=== PATIENT | female | born 1980 | race Caucasian/White ===

== ENCOUNTER → 2017-10-22 | Emergency (ER) | payer SELFPAY ==
[~2017-10-22] VITALS: Ht 167.6 cm; Wt 68.2 kg
[~2017-10-22] MED LIST: SYNTHROID 0.0.025 MG PO
[2017-10-22 21:48] VITALS: BP 147/102; PULSE 117; TEMP 97.1
[2017-10-22 22:09] LABS: BASO # 0.1 (0.0-0.2); BASO % 0.8 % (0.0-2.0); EOS # 0.1 (0.0-0.7); EOS % 0.6 % (0-4.0); GRAN # 3.8 (1.4-6.5); HEMATOCRIT 42.6 % (37.0-47.0); HEMOGLOBIN 14.7 g/dl (12.5-16.0); LYMPH # 4.4 (1.2-3.4); LYMPH % 50.1 % (20.0-51.0); MEAN CELL VOLUME 97 fl (80.0-100.0); MEAN CORPUSCULAR HEMOGLOBIN 33 pg (27.0-31.0); MEAN CORPUSCULAR HGB CONC 35 g/dl (33.0-37.0); MEAN PLATELET VOLUME 10.1 fl (7.4-10.4); MONO # 0.5 (0.1-0.6); MONO % 5.3 % (1.7-9.3); PLATELET COUNT 304 K/mm3 (130-400); REDCELL DISTRIBUTION WIDTH-CV 12.5 % (11.5-14.5)
[2017-10-22 22:21] LABS: ALANINE AMINOTRANSFERASE 26 U/L (9-52); ALBUMIN 4.3 gm/dL (3.5-5.0); ALKALINE PHOSPHATASE 63 U/L (50-136); ANION GAP 19 mmol/L (7-16); AST,SGOT 27 U/L (15-37); BILIRUBIN,TOTAL 0.2 mg/dL (0.0-1.0); BLOOD UREA NITROGEN 13 mg/dL (7-17); CALCIUM 8.6 mg/dL (8.4-10.2); CARBON DIOXIDE 23 mmol/L (22-30); CHLORIDE 104 mmol/L (98-107); CREATININE, serum 0.63 mg/dL (0.52-1.25); GLUCOSE 110 mg/dL (74-106); MAGNESIUM 1.5 mg/dL (1.6-2.3); PHOSPHOROUS 3.2 mg/dL (2.5-4.5); POTASSIUM 3.6 mmol/L (3.4-5.0); SODIUM 146 mmol/L (137-145); TOTAL PROTEIN 7.7 gm/dL (6.4-8.2)
[2017-10-22 22:22] LABS: ACETAMINOPHEN < 10 ug/mL (10-30); SALICYLATE < 1.0 mg/dL
[2017-10-22 22:28] LABS: ALCOHOL(ethanol),MEDICAL 435 mg/dL
[2017-10-22 23:52] LABS: COLLECTION METHOD CLEAN CATCH
[2017-10-22 23:58] LABS: PH 7 (5-8); URINE APPEARANCE Hazy; URINE BACTERIA Rare /hpf; URINE BILIRUBIN Negative (NEGATIVE); URINE BLOOD Negative (NEGATIVE); URINE COLOR Yellow; URINE GLUCOSE Negative (NEGATIVE); URINE KETONE Negative (NEGATIVE); URINE LEUKOCYTE ESTERASE Negative (NEGATIVE); URINE NITRATE Negative (NEGATIVE); URINE PROTEIN(semi-quant) Negative (NEGATIVE); URINE RBC 0-2 /hpf; URINE UROBILINOGEN Negative (NEGATIVE)
[2017-10-23 00:06] LABS: TRICYCLIC ANTIDEPRESS URINE NEGATIVE
== END ==
LOC: COL.ER 21:40
PROVIDERS: Emergency Medicine
DX: R41.82 Altered mental status, unspecified (principal); F10.129 Alcohol abuse with intoxication, unspecified; Z91.5 Personal history of self-harm; Y90.8 Blood alcohol level of 240 mg/100 ml or more
CPT/HCPCS: J7030

== ENCOUNTER 2017-11-08 19:50 | Emergency (ER) | payer SELFPAY ==
[~2017-11-08] VITALS: Ht 165.1 cm; Wt 65.0 kg
[2017-11-08 19:54] VITALS: TEMP 98.1
[2017-11-08 21:48] VITALS: BP 124/102; PULSE 108
== END 2017-11-08 21:52 | disposition home or self-care (01) ==
LOC: COL.ER 19:50
DX: S01.112A Laceration without foreign body of left eyelid and periocular area, initial encounter (principal); F17.210 Nicotine dependence, cigarettes, uncomplicated; Z23 Encounter for immunization; Y04.2XXA Assault by strike against or bumped into by another person, initial encounter

== ENCOUNTER 2017-11-14 15:21 | Emergency (ER) | payer SELFPAY ==
[2017-11-14 15:42] VITALS: BP 124/85; PULSE 104; TEMP 98.6
== END 2017-11-14 15:50 | disposition home or self-care (01) ==
LOC: COL.ER 15:21
DX: S01.112D Laceration without foreign body of left eyelid and periocular area, subsequent encounter (principal); X58.XXXD Exposure to other specified factors, subsequent encounter

== ENCOUNTER 2018-01-15 23:52 | Emergency (ER) | payer SELFPAY ==
[~2018-01-15] VITALS: Ht 165.1 cm; Wt 68.5 kg
[2018-01-15 23:55] VITALS: TEMP 97.5
[2018-01-16 00:25] LABS: COLLECTION METHOD CLEAN CATCH
[2018-01-16 00:38] LABS: BASO # 0.1 (0.0-0.2); BASO % 0.9 % (0.0-2.0); EOS # 0.2 (0.0-0.7); EOS % 2.9 % (0-4.0); GRAN # 2.8 (1.4-6.5); GRAN % 49.9 % (42.2-75.2); HEMATOCRIT 40.2 % (37.0-47.0); HEMOGLOBIN 13.6 g/dl (12.5-16.0); LYMPH # 1.7 (1.2-3.4); LYMPH % 31.1 % (20.0-51.0); MEAN CELL VOLUME 107 fl (80.0-100.0); MEAN CORPUSCULAR HEMOGLOBIN 36 pg (27.0-31.0); MEAN CORPUSCULAR HGB CONC 34 g/dl (33.0-37.0); MEAN PLATELET VOLUME 9.7 fl (7.4-10.4); MONO # 0.8 (0.1-0.6); MONO % 14.5 % (1.7-9.3); PLATELET COUNT 143 K/mm3 (130-400); RED BLOOD COUNT 3.77 M/mm3 (4.10-5.30); REDCELL DISTRIBUTION WIDTH-CV 14.4 % (11.5-14.5)
[2018-01-16 00:39] LABS: TRICYCLIC ANTIDEPRESS URINE NEGATIVE
[2018-01-16 00:45] LABS: ALANINE AMINOTRANSFERASE 243 U/L (9-52); ALBUMIN 4.7 gm/dL (3.5-5.0); ALCOHOL(ethanol),MEDICAL 207 mg/dL; ALKALINE PHOSPHATASE 62 U/L (50-136); ANION GAP 9 mmol/L (7-16); AST,SGOT 224 U/L (15-37); BILIRUBIN,TOTAL 0.3 mg/dL (0.0-1.0); BLOOD UREA NITROGEN 8 mg/dL (7-17); CALCIUM 9.1 mg/dL (8.4-10.2); CARBON DIOXIDE 30 mmol/L (22-30); CHLORIDE 106 mmol/L (98-107); GLUCOSE 88 mg/dL (74-106); MAGNESIUM 1.5 mg/dL (1.6-2.3); POTASSIUM 3.4 mmol/L (3.4-5.0); SODIUM 144 mmol/L (137-145); TOTAL PROTEIN 8.3 gm/dL (6.4-8.2)
[2018-01-16 00:48] LABS: AMORPHOUS CRYSTAL Present /uL; MUCOUS Present /lpf; PH 5 (5-8); URINE APPEARANCE Hazy; URINE BACTERIA Rare /hpf; URINE BILIRUBIN Negative (NEGATIVE); URINE BLOOD 1+ (NEGATIVE); URINE COLOR Yellow; URINE GLUCOSE Negative (NEGATIVE); URINE KETONE Negative (NEGATIVE); URINE LEUKOCYTE ESTERASE 1+ (NEGATIVE); URINE NITRATE Negative (NEGATIVE); URINE PROTEIN(semi-quant) Negative (NEGATIVE); URINE RBC None Seen /hpf; URINE UROBILINOGEN Negative (NEGATIVE)
[2018-01-16 00:53] LABS: ACETAMINOPHEN < 10 ug/mL (10-30); SALICYLATE < 1.0 mg/dL
[2018-01-16] MEDS ORDERED: CEPHALEXIN500 M1 PO (06:27)
[2018-01-16 07:00] VITALS: BP 112/72; PULSE 93
== END 2018-01-16 07:15 | disposition home or self-care (01) ==
LOC: COL.ER 23:52
PROVIDERS: Emergency Medicine
DX: F29 Unspecified psychosis not due to a substance or known physiological condition (principal); F10.10 Alcohol abuse, uncomplicated; F32.9 Major depressive disorder, single episode, unspecified; E03.9 Hypothyroidism, unspecified; Z91.5 Personal history of self-harm; Y90.7 Blood alcohol level of 200-239 mg/100 ml

== ENCOUNTER 2018-01-26 18:07 | Emergency (ER) | payer SELFPAY ==
[~2018-01-26] VITALS: Ht 165.1 cm; Wt 68.2 kg
[~2018-01-26 18:07] MED LIST changes: +CEPHALEXIN500 M1 PO
[2018-01-26 18:57] LABS: BASO # 0.1 (0.0-0.2); BASO % 0.9 % (0.0-2.0); EOS # 0.1 (0.0-0.7); EOS % 1.2 % (0-4.0); GRAN # 4.1 (1.4-6.5); GRAN % 63.4 % (42.2-75.2); HEMATOCRIT 41.5 % (37.0-47.0); LYMPH # 1.6 (1.2-3.4); LYMPH % 25.6 % (20.0-51.0); MEAN CELL VOLUME 106 fl (80.0-100.0); MEAN CORPUSCULAR HEMOGLOBIN 36 pg (27.0-31.0); MEAN CORPUSCULAR HGB CONC 34 g/dl (33.0-37.0); MEAN PLATELET VOLUME 9.9 fl (7.4-10.4); MONO # 0.5 (0.1-0.6); MONO % 8.3 % (1.7-9.3); PLATELET COUNT 150 K/mm3 (130-400); REDCELL DISTRIBUTION WIDTH-CV 13.9 % (11.5-14.5)
[2018-01-26 19:00] LABS: TRICYCLIC ANTIDEPRESS URINE NEGATIVE
[2018-01-26 19:12] LABS: ALANINE AMINOTRANSFERASE 211 U/L (9-52); ALBUMIN 4.8 gm/dL (3.5-5.0); ALCOHOL(ethanol),MEDICAL 205 mg/dL; ALKALINE PHOSPHATASE 73 U/L (50-136); ANION GAP 10 mmol/L (7-16); AST,SGOT 334 U/L (15-37); BILIRUBIN,TOTAL 0.5 mg/dL (0.0-1.0); BLOOD UREA NITROGEN 5 mg/dL (7-17); CALCIUM 9.6 mg/dL (8.4-10.2); CARBON DIOXIDE 28 mmol/L (22-30); CHLORIDE 107 mmol/L (98-107); CREATININE, serum 0.71 mg/dL (0.52-1.25); GLUCOSE 89 mg/dL (74-106); POTASSIUM 3.6 mmol/L (3.4-5.0); SODIUM 144 mmol/L (137-145); TOTAL PROTEIN 8.9 gm/dL (6.4-8.2)
[2018-01-26 19:16] LABS: ACETAMINOPHEN < 10 ug/mL (10-30); SALICYLATE < 1.0 mg/dL
[2018-01-27 02:46] VITALS: BP 110/67; PULSE 110; TEMP 97.3
== END 2018-01-27 02:47 | disposition home or self-care (01) ==
LOC: COL.ER 18:07
PROVIDERS: Emergency Medicine
DX: F10.129 Alcohol abuse with intoxication, unspecified (principal); F30.9 Manic episode, unspecified; Z87.891 Personal history of nicotine dependence

== ENCOUNTER 2018-02-24 22:47 | Observation (INO) | payer SELFPAY ==
[~2018-02-24] VITALS: Ht 165.1 cm; Wt 70.4 kg
[2018-02-24 23:10] LABS: BASO % 0.4 % (0.0-2.0); EOS # 0.2 (0.0-0.7); EOS % 1.6 % (0-4.0); GRAN % 65.2 % (42.2-75.2); HEMOGLOBIN 12.2 g/dl (12.5-16.0); LYMPH # 2.9 (1.2-3.4); LYMPH % 26.7 % (20.0-51.0); MEAN CELL VOLUME 106 fl (80.0-100.0); MEAN CORPUSCULAR HEMOGLOBIN 36 pg (27.0-31.0); MEAN CORPUSCULAR HGB CONC 34 g/dl (33.0-37.0); MEAN PLATELET VOLUME 10.3 fl (7.4-10.4); MONO # 0.6 (0.1-0.6); MONO % 5.5 % (1.7-9.3); PLATELET COUNT 137 K/mm3 (130-400); RED BLOOD COUNT 3.43 M/mm3 (4.10-5.30); REDCELL DISTRIBUTION WIDTH-CV 12.7 % (11.5-14.5)
[2018-02-24 23:11] LABS: HEMATOCRIT 36.2 % (37.0-47.0)
[2018-02-24 23:16] LABS: PROTHROMBIN TIME 11.2 SECONDS (9.7-12.8)
[2018-02-24 23:18] LABS: PARTIAL THROMBOPLASTIN TIME 26.7 SECONDS (26.0-37.0)
[2018-02-24 23:22] LABS: ALBUMIN 4.1 gm/dL (3.5-5.0); BILIRUBIN,TOTAL 0.4 mg/dL (0.0-1.0); CALCIUM 8.8 mg/dL (8.4-10.2); CREATININE, serum 0.75 mg/dL (0.52-1.25); MAGNESIUM 1.8 mg/dL (1.6-2.3); PHOSPHOROUS 1.7 mg/dL (2.5-4.5); POTASSIUM 3.4 mmol/L (3.4-5.0); TOTAL PROTEIN 7.5 gm/dL (6.4-8.2)
[2018-02-25 02:52] LABS: COLLECTION METHOD CLEAN CATCH
[2018-02-25] MEDS ORDERED: TYLENOL 325MG325 MG (02:58)
[2018-02-25 02:59] LABS: MUCOUS Present /lpf; PH 5 (5-8); SQUAMOUS EPITHELIAL None Seen /hpf; URINE APPEARANCE Clear; URINE BACTERIA None Seen /hpf; URINE BILIRUBIN Negative (NEGATIVE); URINE BLOOD Negative (NEGATIVE); URINE COLOR Yellow; URINE GLUCOSE Negative (NEGATIVE); URINE KETONE Negative (NEGATIVE); URINE LEUKOCYTE ESTERASE Negative (NEGATIVE); URINE NITRATE Negative (NEGATIVE); URINE PROTEIN(semi-quant) Negative (NEGATIVE); URINE RBC 0-2 /hpf; URINE UROBILINOGEN Negative (NEGATIVE)
[2018-02-25 03:19] LABS: TRICYCLIC ANTIDEPRESS URINE NEGATIVE
--- NOTE | 2018-02-25 03:56 | NUR ---
Spoke with Zora, ICU clinical coordinator, about appropriateness of patient admission to this ICU with trauma presentation and unwitnessed fall. Stated we would need to admit patient and observe per Dr. Malloy acceptance. Will accept patient.
--- NOTE | 2018-02-25 05:11 | NUR ---
Notified by Crow MckinneyDriver'S License Examiner to take patient from medical ahead of this patient to ICU. Kristine ED RN notified of her decision.
[2018-02-25] MEDS ORDERED: SYNTHROID0.075 MG/T PO (05:48)
[2018-02-25 09:27] VITALS: BP 117/89; PULSE 99; TEMP 97.4
--- NOTE | 2018-02-25 12:29 | NUR ---
SW rec consult for PT. SW met with PT bedside. Patient indicated that she lives alone and has a child in college. PT reports that she does not remember jumping but reports that it could be an SI attempt. 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 Has previous screen and detox center stay in [place] for 90 days. Pt reports that she was using pills that she recieved prior from a emr stay at a hospital in . Pt indicated that she could not sleep for several days and was attempting to sleep. PT reports she was using alcohol, cannabis, and pills. Pills unknown. Pt states that she want to get clean. When offered to call [facility] infront of her she declined and stated she would wait until she is feeling better. Pt states she had last seen a therapist approx a year ago. PT reports that she does not have a VM on phone. SW educated on privacy of health calls and if [employer] can not leave a message then she would have to initiate services. Plan to accept change appears guarded based on the declining of initiating services today. PT Emergency contact is her Mother Lauren Weber . SW placed consult to for financial support, pt is [facility]. SW contact [facility] to screen and left PT phone number . SW offered pt services and gave resource packet. SW educated [place] services.
[2018-02-25 12:42] VITALS: BP 118/76; PULSE 99; TEMP 98.1
--- NOTE | 2018-02-25 13:00 | NUR ---
Patient alert and oriented, see assessment. Laceration to back of head with edges well approximated, lucinda intact, minimal swelling noted. LLE with neuros intact, immobilizer in place. LLE normal color, edema noted around knee. C/o pain 10/10 to back and LLE.
--- NOTE | 2018-02-25 13:14 | NUR ---
Update [facility] called back and are sending an railroad signal operator out on 02/27/2018 to visit with PT in hospital. They will call tomlyman for an update on PT statues.
[2018-02-25 13:45] VITALS: BP 137/79; PULSE 94; TEMP 98.5
[2018-02-25 16:55] VITALS: BP 138/89; PULSE 104; TEMP 98.5
[2018-02-25 18:29] VITALS: BP 137/85; PULSE 105; TEMP 98.7
--- NOTE | 2018-02-25 21:45 | NUR ---
Pt. sitting up in bed watching TV. Pt. is A&OX3, assessment complete. INT to lt. hand patent. Immobilizer brace to LLE. Laceration to back of head, lucinda intact. Pt. reports pain at a 4 at this time. Pt. denies further needs. Call light within reach.
[2018-02-25 23:06] VITALS: BP 134/77; PULSE 107; TEMP 98.5
[2018-02-26] VITALS (10 sets, daily range): BP systolic 112–136; BP diastolic 49–75; PULSE 92–111; TEMP 97.6–98.7
--- NOTE | 2018-02-26 06:02 | NUR ---
Pt. slept off and on through the night. Pt. remains A&OX3. INT to lt. forearm remains patent. Pt. denies pain or other needs at this time. Call light within reach.
--- NOTE | 2018-02-26 10:00 | NUR ---
Patient alert and oriented, answers questions appropriately. See assessment. Laceration to back of head with edges well approximated, lucinda intact. LLE with LINDA and immobilizer in place. Neuros intact to LLE, pulses palpable. Minimal swelling and bruising noted to LLE knee. NWB to LLE. C/o pain and discomfort 4/10 to LLE and back. No other c/o at this time.
--- NOTE | 2018-02-26 11:16 | NUR ---
PUSHPA called [facility] who reports they need patient to call them prior to being able to schedule the evaluation. PUSHPA provided patient with the phone number and a phone to call them and informed nurse. Leon called this sw to return [facility] call from this weekend. They report they are booked up until mar but will wait to hear from [facility].
--- NOTE | 2018-02-26 13:41 | NUR ---
PUSHPA talked with Marylou at [facility]. They are unable to send someone today or tomorrow but can meet with patient at the [facility] in [place] on Mon. They asked for a face sheet and med list to be sent to [phone]. PUSHPA called quincy in [employer] to see if he had done an assitance application. He reports he hasn't and will come up now to do it. Patient is needing a walker. PUSHPA will contact [facility] about doing a salima one.
--- NOTE | 2018-02-26 16:26 | NUR ---
Dane being delivered by [facility] by salima aldo.
--- NOTE | 2018-02-26 21:00 | NUR ---
Patient in bed resting, alert and oriented x3. Shift assessment complete. Acewrap and immobilizer to left lower extremity. Laceration to posterior scalp with lucinda intact. Ecchymosis around left eye. States pain 8/10 to LLE, given pain medications as ordered. Denies further needs at this time. Will continue to monitor.
[2018-02-27 02:00] VITALS: BP 127/76; PULSE 96
--- NOTE | 2018-02-27 05:59 | NUR ---
Patient has rested well through the night. Has requested pain meds through the night, given medications per orders. Has been up to restroom with walker. Gabriele and imobilized maintained to LLE. Denies further needs at this time. Will report off to day shift.
[2018-02-27 07:32] VITALS: BP 103/59; PULSE 105; TEMP 98.4
[2018-02-27] MEDS ORDERED: SYNTHROID0.075 MG/T PO (08:28)
[2018-02-27] MEDS ORDERED: NORCO 325 MG-7.1 TAB PO (08:28)
[2018-02-27 10:03] VITALS: BP 110/57; PULSE 93; TEMP 98.5
--- NOTE | 2018-02-27 10:30 | NUR ---
Patient alert and oriented, answers questions appropriately. See assessment. Neuro intact. Incision to back of head with edges well approximated, lucinda intact. LLE with immobilizer, LINDA and ortho shoe in place. 1+ edema and bruising noted to LLE knee area. Pulses palpable to LLE, no c/o numbness or tingling. NWB to LLE. C/o 8/10 pain to back of head and LLE, no other c/o at this time.
[2018-02-27 11:38] VITALS: BP 120/56; PULSE 108; TEMP 98.2
[2018-02-27 14:18] VITALS: BP 109/68; PULSE 104; TEMP 98.4
[2018-02-27 15:57] VITALS: BP 117/69; PULSE 98; TEMP 98.4
--- NOTE | 2018-02-27 16:34 | NUR ---
Discharge instructions reviewed with patient and family, verbalized understanding. Discharged via wheelchair to auto/home with family at [id number].
== END 2018-02-27 16:34 | disposition home or self-care (01) ==
LOC: COL.ER 22:47 → ICU 02-25 01:03 → SURG 02-25 08:00
PROVIDERS: Emergency Medicine; ADMIT Surgery
DX: S82.102A Unspecified fracture of upper end of left tibia, initial encounter for closed fracture (principal); S92.355A Nondisplaced fracture of fifth metatarsal bone, left foot, initial encounter for closed fracture; S32.029A Unspecified fracture of second lumbar vertebra, initial encounter for closed fracture; S32.039A Unspecified fracture of third lumbar vertebra, initial encounter for closed fracture; S32.049A Unspecified fracture of fourth lumbar vertebra, initial encounter for closed fracture; W13.4XXA Fall from, out of or through window, initial encounter; S01.01XA Laceration without foreign body of scalp, initial encounter; R40.2412 Glasgow coma scale score 13-15, at arrival to emergency department; E03.9 Hypothyroidism, unspecified; F31.9 Bipolar disorder, unspecified; T50.906A Underdosing of unspecified drugs, medicaments and biological substances, initial encounter; Z91.120 Patient's intentional underdosing of medication regimen due to financial hardship; M25.062 Hemarthrosis, left knee; F10.129 Alcohol abuse with intoxication, unspecified; Y90.8 Blood alcohol level of 240 mg/100 ml or more
CPT/HCPCS: G0378; G8978-GP; G8979-GP; J1170; J2060; J2270; J3010; J7030; L1846; Q9967

== ENCOUNTER 2018-05-14 10:00 | Outpatient (RCR) | payer SELFPAY ==
[~2018-05-14 10:00] MED LIST changes: +NORCO 325 MG-7.1 TAB PO; +SYNTHROID0.075 MG/T PO; +TYLENOL 325MG325 MG
== END 2018-05-31 10:54 | disposition home or self-care (01) ==
LOC: WSC 10:00
DX: S82.142D Displaced bicondylar fracture of left tibia, subsequent encounter for closed fracture with routine healing (principal); S82.832D Other fracture of upper and lower end of left fibula, subsequent encounter for closed fracture with routine healing; W17.89XD Other fall from one level to another, subsequent encounter

== ENCOUNTER 2018-08-14 11:40 | Emergency (ER) | payer OTHER ==
[~2018-08-14] VITALS: Ht 165.1 cm; Wt 63.6 kg
[2018-08-14 12:07] VITALS: TEMP 98
[2018-08-14 15:40] VITALS: BP 129/70; PULSE 86
== END 2018-08-14 15:45 | disposition short-term general hospital (02) ==
LOC: COL.ER 11:40
DX: S06.5X0A Traumatic subdural hemorrhage without loss of consciousness, initial encounter (principal); S02.2XXA Fracture of nasal bones, initial encounter for closed fracture; S05.10XA Contusion of eyeball and orbital tissues, unspecified eye, initial encounter; E03.9 Hypothyroidism, unspecified; Z87.891 Personal history of nicotine dependence; Y04.8XXA Assault by other bodily force, initial encounter; Y92.009 Unspecified place in unspecified non-institutional (private) residence as the place of occurrence of the external cause
CPT/HCPCS: J2270; J2405; Q9967

== ENCOUNTER 2018-08-24 11:50 | Emergency (ER) | payer SELFPAY ==
[2018-08-24 12:03] VITALS: BP 115/71; PULSE 104; TEMP 97.8
== END 2018-08-24 12:06 | disposition home or self-care (01) ==
LOC: COL.ER 11:50
DX: S01.01XD Laceration without foreign body of scalp, subsequent encounter (principal); X58.XXXD Exposure to other specified factors, subsequent encounter

== ENCOUNTER 2019-05-13 10:21 | Emergency (ER) | payer SELFPAY ==
[~2019-05-13] VITALS: Ht 165.1 cm; Wt 66.4 kg
[2019-05-13 10:42] VITALS: BP 137/87; PULSE 107; TEMP 97.7
[2019-05-13] MEDS ORDERED: LEVOXYL0.025 MG (11:13)
[2019-05-13] MEDS ORDERED: AMOXICILLIN 8751 TAB PO (12:03)
== END 2019-05-13 12:23 | disposition home or self-care (01) ==
LOC: COL.ER 10:21
DX: S01.511A Laceration without foreign body of lip, initial encounter (principal); F31.9 Bipolar disorder, unspecified; Z87.891 Personal history of nicotine dependence; W22.8XXA Striking against or struck by other objects, initial encounter; Y92.009 Unspecified place in unspecified non-institutional (private) residence as the place of occurrence of the external cause

== ENCOUNTER 2020-09-24 15:38 | Emergency (ER) | payer OTHER ==
[~2020-09-24] VITALS: Ht 167.6 cm; Wt 65.9 kg
[~2020-09-24 15:38] MED LIST changes: +AMOXICILLIN 8751 TAB PO; +LEVOXYL0.025 MG
[2020-09-24 15:44] VITALS: BP 125/84; PULSE 108; TEMP 97.1
== END 2020-09-24 16:30 | disposition home or self-care (01) ==
LOC: COL.ER 15:38
DX: S51.811A Laceration without foreign body of right forearm, initial encounter (principal); F17.210 Nicotine dependence, cigarettes, uncomplicated; X78.1XXA Intentional self-harm by knife, initial encounter

== ENCOUNTER → 2020-10-04 | Outpatient (CLI) | payer SELFPAY ==
[2020-10-04 14:25] VITALS: BP 126/82; PULSE 104
== END ==
LOC: COL.ER 14:15
DX: Z48.02 Encounter for removal of sutures (principal)